=== PATIENT | female | born 1980 | race African-American/Black ===

== ENCOUNTER 2017-09-18 10:02 | Emergency (ER) | payer MEDICAID ==
[~2017-09-18] VITALS: Ht 167.6 cm; Wt 65.3 kg
[2017-09-18 12:24] LABS: APPEARANCE,URINE CLEAR; BILIRUBIN, URINE NEGATIVE (NEGATIVE); COLOR,URINE PALE YELLOW; GLUCOSE, URINE (UA) NEGATIVE (NEGATIVE); KETONES,URINE NEGATIVE (NEGATIVE); LEUKOCYTE ESTERASE ,URINE NEGATIVE (NEGATIVE); NITRITE,URINE NEGATIVE (NEGATIVE); PH,URINE 8 (4.5-8.0); PROTEIN,URINE NEGATIVE (NEGATIVE); UROBILINOGEN,URINE NORMAL MG/DL (0.0-1.0)
[2017-09-18] MEDS ORDERED: IBUPROFEN600 MG ORAL (13:42)
--- NOTE | 2017-09-18 13:49 | Emergency Room Report ---
History of Present Illness General Chief Complaint: Abdominal Pain Source: Patient Present Illness HPI 37YOF with 1 week of intermittent left lower quadrant abd pain Denies associated polyuria, dysuria, fever/chills, back pain Worse with movement, heavy lifting Previous 4 years prior No history of hernia Allergies: Coded Allergies: No Known Allergies (Unverified , 09/18/17) Patient History Past Medical History: none Past Surgical History: Pertinent Family History: none Social History: Denies: smoking, alcohol use, drug use Last Menstrual Period: 09/15/16 Now: No Immunizations: UTD Reviewed Nursing Documentation: PMH: Agreed, PSxH: Agreed Nursing Documentation-PMH Past Medical History: No Stated History Review of Systems All Other Systems: negative except mentioned in HPI Physical Exam Vital Signs Date Time Temp Pulse Resp B/P (MAP) Pulse Ox O2 Delivery O2 Flow Rate FiO2 09/18/17 10:10 97.7 77 18 103/67 98 Room Air Sp02 EP Interpretation: reviewed, normal General Appearance: normal inspection, well appearing, no apparent distress, alert, GCS 15, non-toxic Head: normocephalic, atraumatic Eyes: bilateral eye PERRL, bilateral eye EOMI ENT: normal ENT inspection, hearing grossly normal, normal pharynx, no angioedema, normal voice, TMs + canals normal, uvula midline, moist mucus membranes Neck: normal inspection, full range of motion, supple, thyroid normal, no meningismus, no bony tend Respiratory: normal inspection, lungs clear, normal breath sounds, no rhonchi, no respiratory distress, no retraction, no accessory muscle use, no wheezing, speaking full sentences Cardiovascular #1: regular rate, rhythm, no edema, no JVD, normal capillary refill Gastrointestinal: normal inspection, normal bowel sounds, non tender, soft, no mass, no peritonitis, non-distended, no guarding, no hernia, no pulsatile mass Genitourinary: no CVA tenderness Musculoskeletal: normal inspection, back normal, normal range of motion, no calf tenderness, pelvis stable, Erlinda's Sign negative Neurologic: normal inspection, alert, oriented x3, responsive, glove sewer III-XII nml as tested, motor strength/tone normal, cerebellar normal, normal gait, speech normal Psychiatric: normal inspection, judgement/insight normal, mood/affect normal, no suicidal/homicidal ideation, no delusions Skin: normal inspection, normal color, no rash Lymphatic: normal inspection, no adenopathy Medical Decision Making Diagnostic Impression: Primary Impression: Abdominal pain Qualified Codes: R10.32 - Left lower quadrant pain ER Course Left lower abdominal pain Vital signs stable, afebrile Nonseptic appearing No hernia on exam Urine negative, urinalysis negative for infection or blood I doubt kidney stone There is no infection or hematoma at site and this would be unlikely given that was multiple years ago Advise NSAIDs as this is likely musculoskeletal in nature close primary care followup ER course: Patient has remained stable during ED stay. Disposition: Patient is to be discharged to home. Patient is instructed to follow up with their primary care doctor within 5 days. Strict return precautions discussed with patient such as fever, chills, worsening/severe pain, nausea, vomiting, which may indicate severe illness. Patient verbalizes understanding and agrees with plan. Please note that this Emergency Department Report was dictated using [email or web address] technology software, occasionally this can lead to erroneous entry secondary to interpretation by the dictation equipment Last Vital Signs Date Time Temp Pulse Resp B/P (MAP) Pulse Ox O2 Delivery O2 Flow Rate FiO2 09/18/17 10:10 97.7 77 18 103/67 98 Room Air Status: improved Disposition: HOME, SELF-CARE Condition: Improved Scripts Ibuprofen* (MOTRIN*) 600 Mg Tablet 600 MG ORAL THREE TIMES A DAY for For Pain for 7 Days, #30 TAB 0 Refills Prov: ANUPAM KUHN M.D. 09/18/17 Additional Instructions: - Urine negative - No sign of bacterial infection - Take motrin as needed for pain up to 3x a day with food - Follow up with your doctor ANUPAM KUHN M.D. Sep 18, 2017 13:49
[2017-09-18 13:50] VITALS: BP 113/71
== END 2017-09-18 13:50 | disposition home or self-care (01) ==
LOC: EMR 11:00
DX: R10.9 Unspecified abdominal pain (principal)
CPT/HCPCS: 81003; 81025; 99283

== ENCOUNTER 2018-07-23 11:49 | Emergency (ER) | payer MEDICAID ==
[~2018-07-23] VITALS: Ht 167.6 cm; Wt 75.3 kg
[~2018-07-23 11:49] MED LIST: IBUPROFEN600 MG ORAL
[2018-07-23 12:00] VITALS: BP 117/74
--- NOTE | 2018-07-23 12:13 | Emergency Room Report ---
History of Present Illness General Chief Complaint: Female Urogenital Problems Source: Patient Present Illness HPI patient is a 38-year-old female with no significant past medical history here complaining of 3 days of pruritus of the external vaginal canal. Denies dysuria , urinary frequency, vaginal discharge, vaginal ulceration. Denies pain, fevers /chills. Patient denies any recent sexual encounter reporting that her last sexual encounter was 2 months ago. Patient does report that she usually wears stretchy pants, and uses illicit towel to wipe. Denies chest pain, SOB, palpitation, abdominal pain, nausea and vomiting all other associated symptoms Allergies: Coded Allergies: No Known Allergies (Unverified , 07/23/18) Patient History Past Medical History: see triage record Past Surgical History: none Last Menstrual Period: Jun 2019 Now: No Immunizations: UTD Reviewed Nursing Documentation: PMH: Agreed; PSxH: Agreed Nursing Documentation-PMH Past Medical History: No Stated History Review of Systems All Other Systems: negative except mentioned in HPI Physical Exam Vital Signs Date Time Temp Pulse Resp B/P (MAP) Pulse Ox O2 Delivery O2 Flow Rate FiO2 07/23/18 12:00 97.9 86 16 117/74 97 Room Air Sp02 EP Interpretation: reviewed, normal General Appearance: normal inspection, well appearing Head: normocephalic Eyes: bilateral eye normal inspection, bilateral eye PERRL ENT: normal ENT inspection, hearing grossly normal, normal pharynx Neck: normal inspection, supple Respiratory: normal inspection, lungs clear, no retraction, no wheezing Cardiovascular #1: normal inspection, no edema, no murmur Gastrointestinal: normal inspection, soft, no mass Rectal: deferred Genitourinary: no CVA tenderness, deferred Musculoskeletal: normal inspection, back normal Neurologic: normal inspection, alert Psychiatric: normal inspection, judgement/insight normal Skin: normal inspection, normal color, no rash Lymphatic: normal inspection, no adenopathy Medical Decision Making PA Attestation diagnoses and treatment plans were reviewed and discussed with supervising physician Dr. Camarillo Diagnostic Impression: Primary Impression: Vaginitis ER Course patient is a 38-year-old female with no significant past medical history here complaining of 3 days of pruritus of the external vaginal canal. Denies dysuria , urinary frequency, vaginal discharge, vaginal ulceration. Denies pain, fevers /chills. Patient denies any recent sexual encounter reporting that her last sexual encounter was 2 months ago. Patient does report that she usually wears stretchy pants, and uses illicit towel to wipe. Denies chest pain, SOB, palpitation, abdominal pain, nausea and vomiting all other associated symptoms Ddx considered but are not limited to vaginitis, UTI, yeast infx Vital signs: are WNL, pt. is afebrile H&PE are most consistent with vaginitis ORDERS: UA, lotrisione cream ED INTERVENTIONS: None required at this time. DISCHARGE: At this time pt. is stable for d/c to home. Will provide printed patient care instructions, and any necessary prescriptions. Care plan and follow up instructions have been discussed with the patient prior to discharge. negative , negative UTI Last Vital Signs Date Time Temp Pulse Resp B/P (MAP) Pulse Ox O2 Delivery O2 Flow Rate FiO2 07/23/18 12:00 97.9 86 16 117/74 97 Room Air Disposition: HOME, SELF-CARE Condition: Stable Scripts Clotrimazole/Betamethasone Dip* (LOTRISONE CREAM*) 15 Gm Cream..g. 1 GM TP TWICE A DAY, #15 GM 0 Refills Prov: Nyasia Ronquillo 07/23/18 Patient Instructions: Vaginal Yeast Infection, Adult, Vaginitis Additional Instructions: use cream on the external vaginal area, another cotton underwear only, avoid wearing stretchy pants, keep area dry Nyasia Ronquillo Jul 23, 2018 12:13
[2018-07-23] MEDS ORDERED: LOTRISONE CREAM15 GM TP (12:14)
[2018-07-23 12:31] VITALS: BP 117/74
[2018-07-23 13:10] LABS: APPEARANCE,URINE SLIGHTLY CLOUDY; BILIRUBIN, URINE NEGATIVE (NEGATIVE); COLOR,URINE PALE YELLOW; GLUCOSE, URINE (UA) NEGATIVE (NEGATIVE); KETONES,URINE NEGATIVE (NEGATIVE); LEUKOCYTE ESTERASE ,URINE 2+ (NEGATIVE); NITRITE,URINE NEGATIVE (NEGATIVE); PH,URINE 5 (4.5-8.0); PROTEIN,URINE NEGATIVE (NEGATIVE); UROBILINOGEN,URINE NORMAL MG/DL (0.0-1.0)
== END 2018-07-23 12:31 | disposition home or self-care (01) ==
LOC: EMR 12:23
DX: N76.0 Acute vaginitis (principal)
CPT/HCPCS: 81001; 87086; 99283

== ENCOUNTER 2018-12-17 06:34 | Emergency (ER) | payer MEDICAID ==
[~2018-12-17] VITALS: Ht 170.2 cm; Wt 68.0 kg
[~2018-12-17 06:34] MED LIST changes: +LOTRISONE CREAM15 GM TP
--- NOTE | 2018-12-17 06:59 | Emergency Room Report ---
History of Present Illness General Chief Complaint: Abdominal Pain Source: Patient Present Illness HPI Patient presents with left lower quadrant severe abdominal pain. It started as a couple of hours ago. She tried taking Midol but threw it up. The pain is rated 10/10 and burning and constant. She drove herself here. She denies any nausea, diarrhea or constipation. She denies dysuria. She's never had pain like this before. Her menstruation is late however she believes she is not at this time. No fevers or chills. Review the medical records reveals that she had left lower quadrant pain a weeks duration February 2018. No imaging studies were done at that time. The etiology was not determined. Only a urinalysis was performed at that time. It was clear. Allergies: Coded Allergies: No Known Allergies (Unverified , 07/23/18) Patient History Past Medical History: see triage record, old chart reviewed Past Surgical History: Social History: Denies: smoking, alcohol use, drug use Social History Narrative has 2 children Last Menstrual Period: 12-08-2018 Reviewed Nursing Documentation: PMH: Agreed; PSxH: Agreed Review of Systems All Other Systems: negative except mentioned in HPI Physical Exam Vital Signs Date Time Temp Pulse Resp B/P (MAP) Pulse Ox O2 Delivery O2 Flow Rate FiO2 12/17/18 06:42 98.1 72 18 144/95 98 Room Air Sp02 EP Interpretation: reviewed, normal General Appearance: alert, GCS 15, mild distress Head: normocephalic Eyes: bilateral eye normal inspection, bilateral eye PERRL ENT: moist mucus membranes Neck: supple Respiratory: lungs clear, normal breath sounds Cardiovascular #1: regular rate, rhythm Cardiovascular #2: 2+ radial (R) Gastrointestinal: normal inspection, normal bowel sounds, no mass, non- distended, no guarding, no rebound, tenderness - Left lower quadrant Genitourinary: no CVA tenderness Musculoskeletal: back normal, gait/station normal, normal range of motion Neurologic: alert, oriented x3, grossly normal Psychiatric: anxious - With pain Skin: normal inspection, warm/dry Medical Decision Making Diagnostic Impression: Primary Impression: Renal colic ER Course Patient presents with severe left lower quadrant pain. Differential includes renal stone, UTI, ruptured ovarian cysts, ectopic amongst others. Based on her clinical presentation renal stone is high on the list. Evaluation will be with labs and CT of the abdomen. She'll be treated with IV hydration, Reglan, Benadryl, Toradol and morphine. Some improvement with meds. Labs with normal WBC. Normal CMP and lipase. Min RBC in urine. Preg neg. CT read as negative, but calcification L UVJ. After CT, pain resolved. States has some lower back pain which she associates with beginning of her period. Discussed findings and treatment plan. Laboratory Tests Test 12/17/18 07:00 12/17/18 07:30 White Blood Count 4.6 K/UL (4.8-10.8) L Red Blood Count 4.70 M/UL (4.20-5.40) Hemoglobin 13.5 G/DL (12.0-16.0) Hematocrit 40.9 % (37.0-47.0) Mean Corpuscular Volume 87 FL (80-99) Mean Corpuscular Hemoglobin 28.7 PG (27.0-31.0) Mean Corpuscular Hemoglobin Concent 33.0 G/DL (32.0-36.0) Red Cell Distribution Width 12.7 % (11.6-14.8) Platelet Count 191 K/UL (150-450) Mean Platelet Volume 9.9 FL (6.5-10.1) Neutrophils (%) (Auto) 56.4 % (45.0-75.0) Lymphocytes (%) (Auto) 34.3 % (20.0-45.0) Monocytes (%) (Auto) 6.3 % (1.0-10.0) Eosinophils (%) (Auto) 1.7 % (0.0-3.0) Basophils (%) (Auto) 1.3 % (0.0-2.0) Prothrombin Time 10.4 SEC (9.30-11.50) Prothrombin Time INR 1.0 (0.9-1.1) PTT 26 SEC (23-33) Sodium Level 137 MMOL/L (136-145) Potassium Level 3.5 MMOL/L (3.5-5.1) Chloride Level 102 MMOL/L (98-107) Carbon Dioxide Level 26 MMOL/L (21-32) Anion Gap 9 mmol/L (5-15) Blood Urea Nitrogen 8 mg/dL (7-18) Creatinine 0.7 MG/DL (0.55-1.30) Estimate Glomerular Filtration Rate > 60 mL/min (>60) Glucose Level 115 MG/DL (74-106) H Calcium Level 8.9 MG/DL (8.5-10.1) Total Bilirubin 0.4 MG/DL (0.2-1.0) Aspartate Amino Transferase (AST) 15 U/L (15-37) Alanine Aminotransferase (ALT) 16 U/L (12-78) Alkaline Phosphatase 70 U/L (46-116) Total Protein 8.0 G/DL (6.4-8.2) Albumin 3.6 G/DL (3.4-5.0) Globulin 4.4 g/dL Albumin/Globulin Ratio 0.8 (1.0-2.7) L Lipase 108 U/L (73-393) Human Chorionic Gonadotropin, Qual Negative (NEGATIVE) Urine Color Pale yellow Urine Appearance Clear Urine pH 6.5 (4.5-8.0) Urine Specific [place] 1.005 (1.005-1.035) Urine Protein Negative (NEGATIVE) Urine Glucose (UA) Negative (NEGATIVE) Urine Ketones Negative (NEGATIVE) Urine Blood 2+ (NEGATIVE) H Urine Nitrite Negative (NEGATIVE) Urine Bilirubin Negative (NEGATIVE) Urine Urobilinogen Normal MG/DL (0.0-1.0) Urine Leukocyte Esterase Negative (NEGATIVE) Urine RBC 2-4 /HPF (0 - 2) H Urine WBC 0-2 /HPF (0 - 2) Urine Squamous Epithelial Cells Few /LPF (NONE/OCC) Urine Bacteria Few /HPF (NONE) CT/MRI/US Diagnostic Results CT/MRI/US Diagnostic Results : Imaging Test Ordered: abd pelvis Impression L UVJ stone - not read by radiologist Last Vital Signs Date Time Temp Pulse Resp B/P (MAP) Pulse Ox O2 Delivery O2 Flow Rate FiO2 12/17/18 09:25 98.2 82 17 110/90 100 Room Air Status: improved Disposition: HOME, SELF-CARE Condition: Improved Scripts Ibuprofen* (MOTRIN*) 600 Mg Tablet 600 MG ORAL Q6H PRN for For Pain, #14 TAB Prov: Gage Kraft MD 12/17/18 Gage Kraft MD Dec 17, 2018 06:59
[2018-12-17] MEDS ORDERED: DiphenhydrAMINE 50mg/ml Inj IVP ONE (07:00)
[2018-12-17] MEDS ORDERED: Ketorolac 30mg Inj IV ONE (07:00)
[2018-12-17] MEDS ORDERED: Metoclopramide 10mg/2ml Inj IVP ONE (07:00)
[2018-12-17] MEDS ORDERED: Isovue-300 100ml vial INJ PRN (07:00)
[2018-12-17] MEDS ORDERED: Morphine Sulfate 2mg/ml Inj(IV/IM USE ONLY) IVP ONE (07:00)
[2018-12-17 07:10] VITALS: BP 132/80
--- NOTE | 2018-12-17 07:10 | NUR ---
ED Nurse Note: Patient present at ER with 2 childeren c/o abdominal pain 10/10. per pt, the pain started by 0600 this morning. pt aao x 4 and calm and cooperative. no N/V/D noted.
--- NOTE | 2018-12-17 07:12 | NUR ---
ED Nurse Note: Pt reported the pain is LLQ and severe. pt has not experienced this severe abdominal pain before. pt denied .
[2018-12-17 07:35] LABS: BASOPHILS % (AUTO) 1.3 % (0.0-2.0); EOSINOPHILS % (AUTO) 1.7 % (0.0-3.0); HEMATOCRIT 40.9 % (37.0-47.0); HEMOGLOBIN 13.5 G/DL (12.0-16.0); LYMPHOCYTES % (AUTO) 34.3 % (20.0-45.0); MEAN CORPUSCULAR VOLUME 87 FL (80-99); MONOCYTES % (AUTO) 6.3 % (1.0-10.0); NEUTROPHILS % (AUTO) 56.4 % (45.0-75.0); PLATELET COUNT 191 K/UL (150-450); RED CELL DISTRIBUTION WIDTH 12.7 % (11.6-14.8); WHITE BLOOD COUNT 4.6 K/UL (4.8-10.8)
--- NOTE | 2018-12-17 07:38 | NUR ---
ED Nurse Note: Provided children's father's number by patient and called multiple times to tell him to chicken picker the children but no answer. voice message box is not available. [phone]. will try again.
[2018-12-17 07:42] LABS: ANION GAP 9 mmol/L (5-15); BLOOD UREA NITROGEN 8 mg/dL (7-18); CALCIUM 8.9 MG/DL (8.5-10.1); CARBON DIOXIDE 26 MMOL/L (21-32); CHLORIDE 102 MMOL/L (98-107); CREATININE 0.7 MG/DL (0.55-1.30); POTASSIUM 3.5 MMOL/L (3.5-5.1); SODIUM 137 MMOL/L (136-145)
[2018-12-17 07:45] LABS: APPEARANCE,URINE CLEAR; BILIRUBIN, URINE NEGATIVE (NEGATIVE); COLOR,URINE PALE YELLOW; GLUCOSE, URINE (UA) NEGATIVE (NEGATIVE); KETONES,URINE NEGATIVE (NEGATIVE); LEUKOCYTE ESTERASE ,URINE NEGATIVE (NEGATIVE); NITRITE,URINE NEGATIVE (NEGATIVE); PH,URINE 6.5 (4.5-8.0); PROTEIN,URINE NEGATIVE (NEGATIVE); UROBILINOGEN,URINE NORMAL MG/DL (0.0-1.0)
[2018-12-17 07:47] LABS: ALANINE AMINOTRANSFERASE 16 U/L (12-78); ALBUMIN 3.6 G/DL (3.4-5.0); ALBUMIN/GLOBULIN RATIO 0.8 (1.0-2.7); ALKALINE PHOSPHATASE 70 U/L (46-116); ASPARTATE AMINO TRANSFERASE 15 U/L (15-37); BILIRUBIN,TOTAL 0.4 MG/DL (0.2-1.0)
--- NOTE | 2018-12-17 07:47 | NUR ---
ED Nurse Note: Radiology department is waiting for the lab results to perform CT scan at this moment.
--- NOTE | 2018-12-17 08:03 | NUR ---
ED Nurse Note: Patient called her friend to slat pickler the children. patient went down for CT with 2 children.
--- NOTE | 2018-12-17 08:16 | NUR ---
ED Nurse Note: patient came back from CT scan with children in stable condition.
--- NOTE | 2018-12-17 09:03 | Diagnostic Imaging Report ---
EXAM: CT Abdomen and Pelvis With Intravenous Contrast CLINICAL HISTORY: 38-year-old female with abdominal pain. TECHNIQUE: Axial computed tomography images of the abdomen and pelvis with intravenous contrast. Coronal and sagittal reformatted images were created and reviewed. CTDI is 16.58 mGy and DLP is 880 mGy-cm. One or more of the following dose reduction techniques were used: automated exposure control, adjustment of the mA and/or kV according to patient size, use of iterative reconstruction technique. COMPARISON: None. FINDINGS: Artifacts: Diffuse mild motion artifact. Lung bases: Unremarkable. ABDOMEN: Liver: Hypodense cysts, the largest measuring up to 1.6 cm. Gallbladder and bile ducts: Unremarkable. Pancreas: Unremarkable. Spleen: Unremarkable. Adrenals: Unremarkable. Kidneys and ureters: Unremarkable. Stomach and bowel: Grossly unremarkable, without evidence of mechanical obstruction or acute inflammation, allowing for motion artifact. PELVIS: Appendix: Unremarkable. Bladder: Unremarkable. Reproductive: scar, and relatively thick linear enhancing probable adhesion extending from the anterior body of the uterus to the anterior midline pelvic wall. Small ill-defined right ovarian cyst/follicle, measuring up to 1.7 cm. Small rim-enhancing left ovarian probable corpus luteum cyst, measuring up to 1.4 cm. ABDOMEN and PELVIS: Intraperitoneal space: No ascites or pneumoperitoneum. Bones/joints: No acute abnormality. Soft tissues: Mild diastases recti and relatively broad umbilical hernia, with neck measuring approximately 3.5 cm in transverse diameter, containing fat and a couple small bowel loops, without evidence of associated mechanical bowel obstruction or incarceration. Vasculature: Unremarkable. Lymph nodes: No pathologically enlarged lymph nodes. IMPRESSION: 1. No definite acute abnormality identified to explain unspecified pain, allowing for mild motion artifact. 2. Incidental findings, including scar and probable adhesion of the anterior uterine body to the anterior pelvic wall, and mild diastases recti with broad fat and small bowel containing umbilical hernia, without evidence of complication.
--- NOTE | 2018-12-17 09:04 | NUR ---
ED Nurse Note: Patient has been ambulating to bathroom with steady gait. pt stated "I feel so much better."
--- NOTE | 2018-12-17 09:12 | NUR ---
ED Nurse Note: Urine strainer provided to pt and explained. pt verbalized understanding but she does not want to urinate at this moment.
[2018-12-17] MEDS ORDERED: IBUPROFEN600 MG ORAL (09:17)
[2018-12-17 09:25] VITALS: BP 110/90
--- NOTE | 2018-12-17 09:27 | NUR ---
ER DISCHARGE NOTE: Patient is cleared to be discharged per ERMD, pt is aox4, on room air, with stable vital signs. pt was given dc and prescription instructions, pt was able to verbalize understanding, pt id band and iv site removed without complications. pt is able to ambulate with steady gait. pt took all belongings. Urine strainer was provided.
== END 2018-12-17 09:28 | disposition home or self-care (01) ==
LOC: EMR 07:11
DX: N23 Unspecified renal colic (principal)
CPT/HCPCS: 36415; 74177; 80053; 81003; 83690; 84703; 85025; 85610; 85730; 96361; 96374; 96375; 99284; J1200; J1885; J2270; J2765; Q9967

== ENCOUNTER 2019-05-09 12:36 | Emergency (ER) | payer MEDICAID ==
[~2019-05-09] VITALS: Ht 167.6 cm; Wt 74.8 kg
[2019-05-09] MEDS ORDERED: NKM (12:43)
[2019-05-09 12:53] VITALS: BP 124/71
--- NOTE | 2019-05-09 12:55 | NUR ---
ED Nurse Note:pt. came with leftsided neck pain, no injury reported
--- NOTE | 2019-05-09 13:00 | NUR ---
ER DISCHARGE NOTE: Patient is cleared to be discharged per ERMD, pt is aox4, on room air, with stable vital signs. pt was given dc and prescription instructions, pt was able to verbalize understanding, pt is able to ambulate with steady gait. pt took all belongings.
--- NOTE | 2019-05-09 13:00 | Emergency Room Report ---
History of Present Illness General Chief Complaint: Neck Pain Source: Patient Present Illness HPI 38-year-old female with no significant past medical history here complaining of 2 days of pain started on the left side of neck and radiating to her left arm upon waking up. Denies fall and injury. 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 Describes the pain as aching and rating it 5 out of 10 with radiation to left arm denying tingling and numbness. Patient also points to pain less brown lesion on the back of her scalp that she just recently noticed and does not know how long extended. Patient has multiple nevi on her back however none look suspicious there is a brown bulky irregular lesion in the back of her scalp. Patient does not report any pain at that site. Denies chest pain, shortness of breath, palpitation, abdominal pain, nausea vomiting and all other associated symptoms. Has not taken medication for pain. Allergies: Coded Allergies: No Known Allergies (Unverified , 07/23/18) Patient History Past Medical History: see triage record Past Surgical History: unable to obtain Pertinent Family History: none Last Menstrual Period: 04/25/19 Now: No Immunizations: UTD Reviewed Nursing Documentation: PMH: Agreed; PSxH: Agreed Nursing Documentation-PMH Past Medical History: No Stated History Review of Systems All Other Systems: negative except mentioned in HPI Physical Exam Vital Signs Date Time Temp Pulse Resp B/P (MAP) Pulse Ox O2 Delivery O2 Flow Rate FiO2 05/09/19 12:40 98.6 94 19 124/71 (88) 96 Room Air Sp02 EP Interpretation: reviewed, normal General Appearance: no apparent distress, alert, GCS 15, non-toxic Head: normocephalic, atraumatic Eyes: bilateral eye normal inspection, bilateral eye PERRL ENT: hearing grossly normal, normal pharynx, no angioedema, normal voice Neck: full range of motion, supple/symm/no masses Respiratory: chest non-tender, lungs clear, normal breath sounds, no rhonchi, speaking full sentences Cardiovascular #1: regular rate, rhythm, no edema, no murmur Gastrointestinal: normal inspection, non tender, soft Genitourinary: no CVA tenderness Musculoskeletal: back normal, gait/station normal, normal range of motion, non- tender Neurologic: alert, oriented x3, responsive, motor strength/tone normal, sensory intact, speech normal Psychiatric: judgement/insight normal, memory normal, mood/affect normal, no suicidal/homicidal ideation Skin: other - 1 cm brown bulky irregular lesion noted on the occipital area Lymphatic: no adenopathy Medical Decision Making PA Attestation All diagnoses and treatment plans were reviewed and discussed with my supervising physician Dr. Suh Diagnostic Impression: Primary Impression: Cervical strain Additional Impression: Skin lesion of scalp ER Course 38-year-old female with no significant past medical history here complaining of 2 days of pain started on the left side of neck and radiating to her left arm upon waking up. Denies fall and injury. 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 Describes the pain as aching and rating it 5 out of 10 with radiation to left arm denying tingling and numbness. Patient also points to pain less brown lesion on the back of her scalp that she just recently noticed and does not know how long extended. Patient has multiple nevi on her back however none look suspicious there is a brown bulky irregular lesion in the back of her scalp. Patient does not report any pain at that site. Denies chest pain, shortness of breath, palpitation, abdominal pain, nausea vomiting and all other associated symptoms. Has not taken medication for pain. Ddx considered but are not limited to : Cervical sprain, strain, fracture, melanoma, benign skin lesion Vital signs: are WNL, pt. is afebrile H&PE are most consistent with: Suspicious skin lesion possibility of melanoma, cervical strain ORDERS: No x-ray needed as patient did not fall or injure or was not in any accidents. Patient has full range of motion of the neck. Robaxin, ibuprofen ED INTERVENTIONS: None required at this time. DISCHARGE: At this time pt. is stable for d/c to home. Will provide printed patient care instructions, and any necessary prescriptions. Care plan and follow up instructions have been discussed with the patient prior to discharge. I advised the patient to follow-up with a primary care provider for referral to program management professional for biopsy of the skin lesion return to the emergency room with worsening symptoms at this time since patient does not report any shortness of breath, chest pain, or headache no scanning is needed to rule out possible metastasis also considering that the malignancy status of the lesion is yet unknown Last Vital Signs Date Time Temp Pulse Resp B/P (MAP) Pulse Ox O2 Delivery O2 Flow Rate FiO2 05/09/19 12:53 98.6 78 19 124/71 96 Room Air Disposition: HOME, SELF-CARE Condition: Stable Scripts Ibuprofen* (MOTRIN*) 600 Mg Tablet 600 MG ORAL Q8H PRN for For Pain, #30 TAB 0 Refills Prov: Nyasia Ronquillo 05/09/19 Methocarbamol* (ROBAXIN-750*) 750 Mg Tablet 750 MG PO TID, #21 TAB 0 Refills Prov: Nyasia Ronquillo 05/09/19 Patient Instructions: Cervical Strain and Sprain With [facility] Additional Instructions: Take medication as directed follow-up with your primary care provider you need to be sent to a program management professional in order to test for the skin lesion on the back of your scalp. Nyasia Ronquillo May 09, 2019 13:00
[2019-05-09] MEDS ORDERED: ROBAXIN-750750 MG PO (13:01)
[2019-05-09] MEDS ORDERED: IBUPROFEN600 MG ORAL (13:01)
[2019-05-09 13:06] VITALS: BP 124/71
== END 2019-05-09 13:13 | disposition home or self-care (01) ==
LOC: EMR 12:56
DX: S16.1XXA Strain of muscle, fascia and tendon at neck level, initial encounter (principal); L98.9 Disorder of the skin and subcutaneous tissue, unspecified; X50.9XXA Other and unspecified overexertion or strenuous movements or postures, initial encounter; Y92.9 Unspecified place or not applicable
CPT/HCPCS: 99282